=== PATIENT | male | born 1945 | race African-American/Black ===

== ENCOUNTER → 2020-09-16 | Outpatient (CLI) | payer MEDICARE ==
[2019-01-03 15:00] VITALS: BP 118/66
[~2020-09-16] MED LIST: ALBU2.5V8 INH; ASPI-886 PO; ATOR20TA58 PO; BUDE180A IH; CLOP75TA PO; FURO40TA4 PO; GUAI5SYR PO; LISI10TA16 PO; METO-239 PO; PRED20TA PO; TICA90TA PO
[2020-09-16 14:32] LABS: CALCIUM 8.5 mg/dL (8.5-10.1); CREATININE 0.9 mg/dL (0.7-1.3); GFR 99.3
[2020-09-16 14:35] LABS: BASO # 0.1 x10^3/uL (0.0-0.2); BASO % 1 % (0-3); EOS % 12 % (0-3); HEMATOCRIT 41.3 % (39.0-53.0); HEMOGLOBIN 13.9 g/dL (13.0-17.5); LYMPH # 2.2 x10^3/uL (1.0-4.8); LYMPH % 26 % (24-48); MEAN CORPUSCULAR HEMOGLOBIN 31 pg (25-35); MEAN CORPUSCULAR HGB CONC 34 g/dL (31-37); MEAN CORPUSCULAR VOLUME 93 fL (79-100); MONO % 12 % (0-9); NEUT % 49 % (31-73); PLATELET COUNT 163 x10^3/uL (140-400); RED BLOOD COUNT 4.45 x10^6/uL (4.30-5.70); RED CELL DISTRIBUTION WIDTH 17.3 % (11.5-14.5); WHITE BLOOD COUNT 8.3 x10^3/uL (4.0-11.0)
[2020-09-16 14:44] LABS: ANISOCYTOSIS SLIGHT; PLT ESTIMATE ADEQUATE (ADEQUATE); POIKILOCYTOSIS SLIGHT
[2020-09-16 14:45] LABS: ACANTHOCYTES OCC; HOWELL-JOLLY BODIES PRESENT; SCHISTOCYTES OCC; TARGET CELLS FEW
[2020-09-16 14:46] LABS: ALBUMIN 3.4 g/dL (3.4-5.0); ALBUMIN/GLOBULIN RATIO 0.8 (1.0-1.7); TOTAL BILIRUBIN 0.7 mg/dL (0.2-1.0); TOTAL PROTEIN 7.9 g/dL (6.4-8.2)
== END ==
LOC: ONCLAB 13:55
PROVIDERS: ATTEND Internal Medicine Hematology & Oncology
DX: C34.12 Malignant neoplasm of upper lobe, left bronchus or lung (principal)
CPT/HCPCS: 36415; 80053; 85025

== ENCOUNTER → 2020-10-16 | Outpatient (CLI) | payer MEDICARE ==
[2019-01-03 15:00] VITALS: BP 118/66
--- NOTE | 2020-10-16 08:38 | RAD ---
EXAM: Chest CT without intravenous contrast. HISTORY: Lung cancer. TECHNIQUE: Computed tomographic images of the chest were obtained without contrast. Multiplanar refor matting was performed. *One or more of the following individualized dose reduction techniques were utilized for this examina tion: 1. Automated exposure control. 2. Adjustment of the mA and/or kV according to patient size. 3. Use of iterative reconstruction technique. COMPARISON: 12/22/2018. FINDINGS: There has been interval partial left lung resection. There is associated left hemithorax vo lume loss with leftward mediastinal shift and elevation of the left hemidiaphragm. There is linear sc arring within the left lower thorax and left posterior dependent atelectasis. There is no pneumothora x or pleural effusion. There is mild emphysema no suspicious pulmonary nodule is seen. The heart is normal in size. There is calcified atherosclerotic plaque involving the aorta and ames ry arteries. There are calcified hilar granulomas. There are prominent anterior mediastinal lymph nod es, slightly increased compared to the prior exam. There is also been increase in a right paratrachea l lymph node measuring 1.5 cm and precarinal lymph nodes measuring up to 1.5 cm. There are multiple p rominent left greater than right axillary lymph nodes which are stable in appearance. There are multi ple chronic appearing left rib fractures, likely due to interval thoracotomy changes. Evaluation of the upper abdomen demonstrates cholelithiasis. The spleen is absent. There is a small a mount of residual splenic tissue within the left upper quadrant, stable in appearance. There is degen erative change involving the spine. There is no acute or suspicious osseous lesion. No measurable pul monary nodule is seen. IMPRESSION: 1. Findings consistent with interval left thoracotomy and partial left lung resection. No pulmonary n odule or mass is seen. 2. Slight interval increase in anterior mediastinal, right paratracheal and precarinal lymph nodes. T hese are nonspecific and may be reactive in etiology. There are stable prominent left greater than ri ght axillary lymph nodes. 3. Pulmonary emphysema. 4. Cholelithiasis. Electronically signed by: Olga Mcgregor MD (10/16/2020 8:35 AM) [id number]
== END ==
LOC: CT 08:34
PROVIDERS: ATTEND Internal Medicine Hematology & Oncology
DX: C34.12 Malignant neoplasm of upper lobe, left bronchus or lung (principal); J43.9 Emphysema, unspecified; K80.20 Calculus of gallbladder without cholecystitis without obstruction
CPT/HCPCS: 71250

== ENCOUNTER → 2021-06-25 | Outpatient (CLI) | payer MEDICARE ==
[2019-01-03 15:00] VITALS: BP 118/66
[~2021-06-25] MED LIST changes: +REGADENOSON 0.4 MG/5 ML DISP.SYRIN. IV ONE
--- NOTE | 2021-06-25 17:30 | RAD ---
MR#: [id number] Date of Study: 06/25/2021 Ordering Physician: ABBI RUIZ, Referring Physician: OSMAN SIMON Tech: RT Gil (R) (N) APPROVED REPORT Test Type: Pharmacological Stress Nurse/Tech: Demetrius COATES Test Indications: CAD Cardiac History: DC, PTCA, Lung cancer Medications: ASA, See EMR Medical History: Lung cancer, See EMR. Resting ECG: SR w/ PVC's, see printout Resting Heart Rate: 76 bpm Resting Blood Pressure: 148/86mmHg Pretest Chest Pain: No chest pain Nurse/Tech Notes Lungs diminished. S1S2 heart tones. Pharm. Details Pharmacologic stress testing was performed using 0.4mg per 5ml of regadenoson given intravenously ove r 7-10 seconds. Stress Symptoms Patient attempted treadmill stress test. Due to fatigue, SOA, test was stopped and Lexiscan performed . Patient tolerted Lexiscan well. No SOA, no fatigue, no chest pain. POST EXERCISE Reason for Termination: Infusion complete Max HR: 90 bpm Max Blood Pressure: 146/65mmHg Chest Pain: No. Arrhythmia: No. ST Change: No. INTERPRETATION Stress EKG Conclusion: No evidence of stress-induced EKG changes although the EKGs limited due to mot ion artifact Rest: Stress: Viability: Radiopharm.Tc99m [id number] Sestamibi Dose10.4mCi 31mCi Duration 15min. 15min. Img Date 06/25/2021 06/25/2021 Inj-Img [id number]. 60min. Rest Admin Site:IV - Right AntecubitalAdministrator:HILDA Sutton, ARRT (R)(N) Stress Admin Site: IV - Right AntecubitalAdministrator: RT Nino (R)(N) STRESS DATA End Diast. Vol.112.0mlLVEDV index BSA54.0ml End Syst. Vol.63.0mlLVESV index BSA30.0ml Myocardial Imyb007.0gEject. Xeukvllo00.0% Stress Scores Regional WT2.00Summed WT25.00 Regional WM0.00Summed WM17.00 LV Perfusion There is a large size inferior inferolateral fixed defect suggestive of prior infarct without any sig nificant active ischemia. Wall Motion Moderate LV dysfunction, EF 44% LV Perf. Quant 17 Seg. SSS10.00 17 Seg. SRS12.00 17 Seg. SDS0.00 Stress Defect Extent (% LAD)0.00Rest Defect Extent (% LAD)0.00Rev. Defect Extent (% LAD)0.00 Stress Defect Extent (% LCX) 90.00Rest Defect Extent (% LCX)77.50Rev. Defect Extent (% LCX)30.00 Stress Defect Extent (% RCA)17.80Rest Defect Extent (% RCA)26.70Rev. Defect Extent (% RCA)0.00 Stress Defect Extent (% AICHA)23.90Rest Defect Extent (% AICHA)24.10Rev. Defect Extent (% AICHA)5.70 Other Information Quality:Fair Risk Assessment: Moderate Risk Conclusion 1. Significantly limited exercise capacity requiring conversion from traditional treadmill to pharmac ological stress testing 2. Stress EKG did not reveal any significant abnormalities although the EKG is limited due to motion artifact 3. Large inferolateral fixed perfusion defect suggestive of prior infarct without significant ischemi a 4. Moderate LV dysfunction, EF 44% 5. Moderate risk for future cardiovascular events Signed by : Abbi Ruiz, Electronically Approved : 06/25/2021 17:29:50
== END ==
LOC: NM 09:18
PROVIDERS: ATTEND Internal Medicine Cardiovascular Disease
DX: I51.9 Heart disease, unspecified (principal); I25.10 Atherosclerotic heart disease of native coronary artery without angina pectoris
CPT/HCPCS: 78452; 93017; A9500; J2785

== ENCOUNTER → 2021-07-21 | Outpatient (CLI) | payer MEDICARE ==
[2019-01-03 15:00] VITALS: BP 118/66
[~2021-07-21] MED LIST changes: +IOHEXOL 350 MG/ML 100 ML VIAL. IV ONE; -REGADENOSON 0.4 MG/5 ML DISP.SYRIN. IV ONE
--- NOTE | 2021-07-21 16:06 | RAD ---
EXAM: Carotid Doppler sonogram. HISTORY: Transient ischemic attack. Atherosclerosis. TECHNIQUE: Landin scale and color Doppler sonographic evaluation of the neck with spectral waveform parveen lysis was performed and static images are submitted for review. FINDINGS: There is mild atherosclerotic plaque involving the carotid bifurcations. The peak systolic velocity within the right common carotid artery is 60 cm/sec. The peak systolic tressa ocity within the right internal carotid artery is 70 cm/sec and the end diastolic velocity within the right internal carotid artery is 21 cm/sec. The right ICA/CCA ratio is 1.3. The peak systolic velocity within the left common carotid artery is 61 cm/sec. The peak systolic [place] within the left internal carotid artery is 69 cm/sec and the end diastolic velocity within the l eft internal carotid artery is 20 cm/sec. The left ICA/CCA ratio is 1.2. There is normal antegrade flow within both vertebral arteries. IMPRESSION: Doppler findings consistent with less than 50 percent stenosis involving the internal car otid arteries. PQRS Compliance Statement - Stenosis calculations for CT, MR and conventional angiography are based u mayur measurement of the distal ICA diameter in accordance with the NASCET methodology. Stenosis calcu lations for carotid ultrasound studies are derived from validated velocity criteria which are known t o correlate with the NASCET methodology. Electronically signed by: Olga Mcgregor MD (07/21/2021 4:04 PM) [id number]
--- NOTE | 2021-07-21 17:03 | RAD ---
EXAM: CT ANGIOGRAM ABDOMEN AND PELVIS WITH AND WITHOUT CONTRAST INDICATION: Iliac artery aneurysm COMPARISON: CTA abdomen and pelvis 01/03/2019 TECHNIQUE: Helical CT imaging performed of the abdomen and pelvis before and after administration of 90 mL Omnipaque 350 intravenous contrast in noncontrast and angiographic phase. Sagittal and coronal reformats and MIP reconstructions were obtained. One or more of the following individualized dose reduction techniques were utilized for this examinat ion: 1. Automated exposure control 2. Adjustment of the mA and/or kV according to patient size 3. Use of iterative reconstruction technique. FINDINGS: Vasculature: There are surgical changes of infrarenal abdominal aortic aneurysm repair, likely open a pproach. No evidence of leak or complication. There appears to be a residual distal excluded aneurysm sac at the level of the bifurcation with 2 presumably abandoned common iliac artery stents from a pr evious repair. The abdominal aortic branch origins are patent. No aortic dissection. There are bilateral common iliac artery stent grafts extending from the [place] common iliac arteries into the bilateral internal and external iliac arteries, and 2 patent smaller stents extending from t he repaired abdominal aorta to the common iliac artery stent grafts. 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 The common iliac arteries are unchanged to slightly decreased in caliber, measuring up to 2.5 cm bilaterally. Lung bases: Mild scarring in the left lung base. The heart is normal in size. There are coronary lacy ry calcifications. Liver: Unremarkable. Gallbladder/Biliary Tree: Cholelithiasis. Pancreas: Normal. Spleen: The spleen is surgically absent. Adrenal Glands: Normal. Kidneys/Ureters/Bladder: Normal. No nephrolithiasis or hydronephrosis. Reproductive Organs: Prostate gland is normal. Stomach, small bowel, and colon: Small hiatal hernia. There are surgical changes of the small bowel w ith and anastomosis in the right upper quadrant. No small bowel obstruction. The appendix is normal. There is colonic diverticulosis. Lymph Nodes: No lymphadenopathy. Peritoneum and retroperitoneum: No free fluid or free air. Bones: The bones are diffusely demineralized. No acute osseous abnormality. Other: There is diastases recti. IMPRESSION: 1. 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 Correlate with surgical report. 2. The limb extending into the right internal iliac artery is occluded along with the rest of the na tive right internal iliac artery. This is new from 01/03/2019 but appears chronic. The rest of the sten ts are patent. The common iliac arteries are unchanged or slightly decreased in caliber. 3. Additional chronic findings in the abdomen and pelvis as above. Electronically signed by: Mabel Forman MD (07/21/2021 5:00 PM) [id number]
== END ==
LOC: CT 12:43
PROVIDERS: ATTEND Internal Medicine Cardiovascular Disease
DX: I65.23 Occlusion and stenosis of bilateral carotid arteries (principal); I74.5 Embolism and thrombosis of iliac artery; K80.20 Calculus of gallbladder without cholecystitis without obstruction; K44.9 Diaphragmatic hernia without obstruction or gangrene; K57.30 Diverticulosis of large intestine without perforation or abscess without bleeding; M62.08 Separation of muscle (nontraumatic), other site; G45.9 Transient cerebral ischemic attack, unspecified; Z90.81 Acquired absence of spleen; Z98.890 Other specified postprocedural states
CPT/HCPCS: 74174; 93880; Q9967